=== PATIENT | male | born 1965 ===

== ENCOUNTER 2018-08-28 16:35 | Emergency (ER) | payer SELFPAY ==
[2018-08-28 16:43] VITALS: RESP 20; TEMP 98.9; O2SAT 98
[2018-08-28] MEDS ORDERED: Tdap Vaccine 0.5 ml Vial (10-64 yrs) IM ONE ×2 (17:34→18:13)
--- NOTE | 2018-08-28 17:36 | C.PDOC ---
History Of Present Illness 53 y/o male presents to the ER for evaluation of a laceration to the left knee s/p cut with a chainsaw at approximately 4:30 pm in the afternoon today. Patient states that he is able to bend his knee and bear weight. Patient reports that he is not sure about his last tetanus vaccination. Denies having numbness, parasthesia, and hip/ankle pain. Chief Complaint (Nursing): Abnormal Skin Integrity History Per: Patient History/Exam Limitations: no limitations Onset/Duration Of Symptoms: Hrs Current Symptoms Are (Timing): Still Present Severity: Moderate Past Medical History Reviewed: Historical Data, Nursing Documentation, Vital Signs Vital Signs: Last Vital Signs Temp 98.9 F 08/28/18 16:40 Pulse 58 L 08/28/18 16:40 Resp 20 08/28/18 16:40 BP 134/72 08/28/18 16:40 Pulse Ox 98 08/28/18 16:40 - Medical History PMH: No Chronic Diseases Surgical History: No Surg Hx Family History: States: No Known Family Hx - Social History Hx Alcohol Use: No Hx Substance Use: No - Immunization History Hx Tetanus Toxoid Vaccination: No Hx Influenza Vaccination: No Hx Pneumococcal Vaccination: No Review Of Systems Except As Marked, All Systems Reviewed And Found Negative. Constitutional: Negative for: Fever, Chills Cardiovascular: Negative for: Chest Pain, Palpitations Respiratory: Negative for: Cough, Shortness of Breath Gastrointestinal: Negative for: Nausea, Vomiting, Abdominal Pain Musculoskeletal: Positive for: Leg Pain (left knee). Negative for: Neck Pain, Shoulder Pain, Arm Pain, Back Pain, Hand Pain Skin: Positive for: Other (laceration to left knee) Neurological: Negative for: Weakness, Numbness Physical Exam - Physical Exam Appears: Non-toxic, No Acute Distress Skin: Normal Color, Warm, Dry, Other (6 cm laceration to left knee inferior to patella) Head: Atraumatic, Normacephalic Eye(s): bilateral: Normal Inspection Nose: Normal Oral Mucosa: Moist Tongue: Normal Appearing Lips: Normal Appearing Neck: Supple Chest: Symmetrical Cardiovascular: Rhythm Regular Respiratory: Normal Breath Sounds, No Rales, No Rhonchi, No Wheezing Back: Normal Inspection, No Vertebral Tenderness Extremity: Normal ROM (left knee ), Other (1cm deep left knee laceration over patella, 6cm in length, no bone or tendon visualized in left knee) Pulses: Left Femoral: Normal, Right Femoral: Normal, Left Dorsalis Pedis: Normal, Right Dorsalis Pedis: Normal Neurological/Psych: Oriented x3, Normal Speech, Normal Motor, Normal Sensation ED Course And Treatment O2 Sat by Pulse Oximetry: 98 (RA) Pulse Ox Interpretation: Normal Procedure: Wound Repair - Time Performed Time Performed: 19:15 - Time Out Time Out: Side verified, Site verified, Patient ID confirmed, Sterile procedures obs. - Consent Obtained Consent obtained: Verbal - Performed by Performed by: Mid-level Provider - Indications Indication(s):: Laceration - Location Location:: Left, Knee Dimensions Length cm: 6cm Dimensions width cm: 1cm Depth:: Subcutaneous fascia - Anesthetic Technique Anesthetic Technique: Local Local/Regional Anesthetic:: Lidocaine 1% w/epi - Debris Debris:: None - Irrigated Irrigated with ml of normal saline: 30 - Complexity Complexity:: Intermediate (2 layer) - Wound repair method Sutures:: # (19), Size (3-0), Type (Nylon), Technique (Simple Interrupted) - Muscle repiar layer closed with Muscle repair layer closed with:: # (4), Size (4-0), Type (Chromic Gut), Wound well approximated, Abx ointment applied, Dressing applied, Tetanus ordered - Complications Complications: none - Patient tolerated procedure Patient Tolerated Procedure:: Well Medical Decision Making Medical Decision Making: Initial Plan: --Tetanus Vaccination --X-Ray-Left Knee --Laceration Repair Left knee xray normal, no fracture. Ostephyte on inferior patella. Pt tolerated laceration repair well, comfortable with discharge. 4 subcutaneous chromic gut sutures placed to approximate edges 19 nylon sutures placed in simple interrupted technique Impression: left knee laceration Plan: Wound care Keflex Return in 10-14 days for suture removal wear knee immobilizer 4-5 days return for signs of infection Disposition - Disposition Referrals: Rosita Dennison MD [Staff Provider] - Disposition: HOME/ ROUTINE Disposition Time: 19:00 Condition: IMPROVED Additional Instructions: RETURN IN 10-14 DAYS FOR SUTURE REMOVAL KEEP KNEE IMMOBILIZER ON FOR 4-5 DAYS, gently increase ROM as tolerated Take antibiotic (keflex) every 8 hours for 7 days Take ibuprofen every 6 hours as needed for pain Keep wound clean, dry, and covered no soaking the wound, showers are okay Followup with primary doctor within 2 days Return to ED if wound becomes severely tender, is draining pus, or is warm to touch Prescriptions: Cephalexin [Keflex] 500 mg PO TID 7 Days #21 capsule Ibuprofen [Motrin Tab] 600 mg PO Q6H PRN #30 tab PRN Reason: Pain, Mild (1-3) Forms: [employer] (French), Work Excuse Print Language: PASHTO - Clinical Impression Clinical Impression: Laceration - PA / SOFTWARE ENGINEER / Resident Statement MD/DO has reviewed & agrees with the documentation as recorded. - Scribe Statement The provider has reviewed the documentation as recorded by the Usama Alvarado Provider Attestation All medical record entries made by the Usama were at my direction and personally dictated by me. I have reviewed the chart and agree that the record accurately reflects my personal performance of the history, physical exam, medical decision making, and the department course for this patient. I have also personally directed, reviewed, and agree with the discharge instructions and disposition.
[2018-08-28] MEDS ORDERED: Lidocaine 1%/Epinephrine 1:100000 30 ml vial IJ ONE (17:53)
--- NOTE | 2018-08-28 18:25 | RAD ---
PROCEDURE: Left Knee Radiographs. HISTORY: Laceration COMPARISON: None available FINDINGS: BONES: No acute displaced fracture. Degenerative changes including tenting of the intercondylar notch and infrapatellar enthesophyte. JOINTS: No dislocation. Tricompartmental joint space narrowing. JOINT EFFUSION: No significant joint effusion. OTHER FINDINGS: Soft tissue swelling. No evidence of radiopaque foreign body. IMPRESSION: Soft tissue swelling. Degenerative changes. No acute displaced fracture, dislocation, or significant joint effusion identified. If symptoms persist, or if there is continued clinical concern, x-ray follow-up in 7-10 days should be considered.
[2018-08-28] MEDS ORDERED: Bacitracin 500 Units/gm Oint Foilpak UD TOP ONE (20:33)
[2018-08-28] MEDS ORDERED: Bacitracin 500 Units/gm Oint Foilpak UD ONE (20:39)
[2018-08-28 22:05] VITALS: BP 130/74; PULSE 70
== END 2018-08-28 21:10 | disposition home or self-care (01) ==
LOC: C.ER 16:35
DX: S81.012A Laceration without foreign body, left knee, initial encounter (principal); W45.8XXA Other foreign body or object entering through skin, initial encounter

== ENCOUNTER 2018-09-11 16:31 | Emergency (ER) | payer OTHER ==
[2018-09-11 16:52] VITALS: BP 112/60; PULSE 59; RESP 18; TEMP 98.2; O2SAT 99
--- NOTE | 2018-09-11 16:54 | C.PDOC ---
History Of Present Illness 53 year old male presents to the ER for suture removal. Patient had sutures placed on his left knee 2 weeks ago. Denies fever or discharge. Time Seen by Provider: 09/11/18 16:53 Chief Complaint (Nursing): Abnormal Skin Integrity History Per: Patient History/Exam Limitations: no limitations Onset/Duration Of Symptoms: Days (2 weeks) Current Symptoms Are (Timing): Still Present Location Of Injury: Left: Knee Recent travel outside of the [place]: No Past Medical History Reviewed: Historical Data, Nursing Documentation, Vital Signs Vital Signs: Last Vital Signs Temp 98.2 F 09/11/18 16:46 Pulse 59 L 09/11/18 16:46 Resp 18 09/11/18 16:46 BP 112/60 09/11/18 16:46 Pulse Ox 99 09/11/18 16:46 Family History: States: Unknown Family Hx - Social History Hx Alcohol Use: No Hx Substance Use: No - Immunization History Hx Tetanus Toxoid Vaccination: No Hx Influenza Vaccination: No Hx Pneumococcal Vaccination: No Review Of Systems Constitutional: Negative for: Fever, Chills Skin: Positive for: Other (Sutures) Physical Exam - Physical Exam Appears: Non-toxic Skin: Warm, Dry, Other (Sutures in place, no discharge or erythema) Head: Atraumatic, Normacephalic Eye(s): bilateral: Normal Inspection Extremity: Normal ROM (x4), Capillary Refill (<2 seconds) Pulses: Left Dorsalis Pedis: Normal, Right Dorsalis Pedis: Normal Neurological/Psych: Oriented x3, Normal Speech, Normal Motor, Normal Sensation Gait: Steady ED Course And Treatment O2 Sat by Pulse Oximetry: 99 (room air) Pulse Ox Interpretation: Normal Progress Note: Patient tolerated suture removal without any difficulty, bacitracin applied, will discharge home with instructions to follow up with PMD. Disposition - Disposition Disposition: HOME/ ROUTINE Disposition Time: 17:05 Condition: STABLE Additional Instructions: Follow up with your PMD/Clinic as needed. Return to ED if feel worse. 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 - Scribe Statement The provider has reviewed the documentation as recorded by the Scribleatha Cifuentes All medical record entries made by the Valeriaibleatha were at my direction and personally dictated by me. I have reviewed the chart and agree that the record accurately reflects my personal performance of the history, physical exam, medical decision making, and the department course for this patient. I have also personally directed, reviewed, and agree with the discharge instructions and disposition.
[2018-09-11] MEDS ORDERED: Bacitracin 500 Units/gm Oint Foilpak UD TOP STA (17:05)
[2018-09-11] MEDS ORDERED: Bacitracin 500 Units/gm Oint Foilpak UD ONE (17:24)
== END 2018-09-11 17:25 | disposition home or self-care (01) ==
LOC: C.ER 16:31
DX: Z48.02 Encounter for removal of sutures (principal)